=== PATIENT | female | born 1995 | race Caucasian/White ===

== ENCOUNTER 2018-01-13 09:08 | Outpatient (CLI) | payer MEDICAID ==
--- NOTE | 2018-01-13 12:56 | XRAY Report ---
TWO-VIEW LEFT SHOULDER: 01/13/2018 CLINICAL INDICATION: Pain. FINDINGS: Frontal and scapular Y views of the left shoulder demonstrate no evidence of fracture or dislocation. The joint spaces are preserved. No radiopaque foreign body is seen in the soft tissues. IMPRESSION: NORMAL LEFT SHOULDER. TD: 01/13/2018 12:55
== END 2018-01-13 09:09 | disposition home or self-care (01) ==
LOC: DI.S 09:08
PROVIDERS: ATTEND Nurse Practitioner Family
DX: M25.512 Pain in left shoulder (principal)

== ENCOUNTER 2018-04-06 12:28 | Outpatient (CLI) | payer MEDICAID ==
--- NOTE | 2018-04-06 15:38 | MRI Report ---
Procedure Date: 04/06/2018 Accession Number: [id number] / [id number] Procedure: MRI - Shoulder LT W/O CPT Code: FULL RESULT: EXAM: LEFT SHOULDER MRI WITHOUT CONTRAST EXAM DATE: 04/06/2018 01:28 PM. CLINICAL HISTORY: Pain in left shoulder, impingement syndrome. COMPARISON: None. TECHNIQUE: Multiplanar, multisequence T1-weighted and fluid-sensitive sequences of the shoulder without contrast. Other: None. FINDINGS: Acromioclavicular Region: The acromion is type II. The acromioclavicular joint is unremarkable. No subacromial/subdeltoid bursal fluid. Glenohumeral Region: No subluxation. No effusion or loose bodies. There is focal thinning of the hyaline cartilage in the posterior margin of the bony glenoid, with mild underlying bony edema. Hyaline cartilage in the remainder of the glenohumeral joint appears normal. Bone Marrow: No fracture, marrow edema or bone lesions. Labrum: The labrum appears unremarkable. Musculature/Rotator Cuff: The subscapularis, supraspinatus, infraspinatus, and teres minor tendons are intact. No edema or fatty atrophy. Biceps Tendon: The long head of the biceps tendon and biceps hector are intact. Other: The subcutaneous tissues are unremarkable. IMPRESSION: 1. Focal osteochondral injury of the posterior margin of the bony glenoid suggesting a prior posterior dislocation or subluxation. 2. The rotator cuff and acromioclavicular joint appear normal. [facility] MUSCULOSKELETAL RADIOLOGY SECTION
== END 2018-04-06 12:29 | disposition home or self-care (01) ==
LOC: DI 12:28
PROVIDERS: ATTEND Nurse Practitioner Family
DX: M25.512 Pain in left shoulder (principal); M75.42 Impingement syndrome of left shoulder

== ENCOUNTER 2018-06-28 09:10 | Outpatient (CLI) | payer MEDICAID ==
[2018-06-28] MEDS ORDERED: GADOPENTETATE DIMEGLUMINE 5 ML VIAL IVP ONE ×2 (09:20→10:04)
[2018-06-28] MEDS ORDERED: IOTHALAMATE MEGLUMINE 50 ML VIAL ONE (09:20)
[2018-06-28] MEDS ORDERED: BUFFERED LIDOCAINE 10 ML SYRINGE IU ONE (10:04)
[2018-06-28] MEDS ORDERED: IOTHALAMATE MEGLUMINE 50 ML VIAL IVP ONE (10:04)
--- NOTE | 2018-06-28 10:22 | XRAY Report ---
Reason: PAIN IN LEFT SHOULDER Procedure Date: 06/28/2018 Accession Number: [id number] / [id number] Procedure: FL - Arthrogram Needle Placement CPT Code: FULL RESULT: EXAM: FLUOROSCOPIC LEFT SHOULDER ARTHROGRAM EXAM DATE: 06/28/2018 10:03 AM. CLINICAL HISTORY: PAIN IN LEFT SHOULDER. COMPARISON: None. FINDINGS: The risks and benefits of the procedure were discussed with the patient, and she desired to proceed. A standard timeout was performed which identified the left shoulder as the correct joint as well as patient name and date of . The patient was prepped and draped in normal sterile fashion. 6 cc of 1% lidocaine were injected into the soft tissues for anesthesia. Using a 20-gauge needle the left shoulder joint was accessed under fluoroscopic guidance, and 12 cc of solution were injected into the joint. The solution contained 10 cc lidocaine 1%, 10 cc Conray, and a 0.1 cc Gadavist. There were no immediate complications. The patient was escorted to the MRI suite. IMPRESSION: Successful contrast injection of the left shoulder [facility]
--- NOTE | 2018-06-28 14:14 | MRI Report ---
Reason: PAIN IN LEFT SHOULDER Procedure Date: 06/28/2018 Accession Number: [id number] / [id number] Procedure: MRI - Arthrogram Shoulder LT CPT Code: FULL RESULT: EXAM: LEFT SHOULDER MRI ARTHROGRAM WITH CONTRAST EXAM DATE: 06/28/2018 10:06 AM. CLINICAL HISTORY: Pain in left shoulder. "Focal osteochondral injury of the posterior margin of the bony glenoid". Described on the MRI left shoulder without contrast 04/06/2018. COMPARISON: Arthrogram 06/28/2018 9:44 AM. Shoulder left without contrast 04/06/2018 12:59 PM. TECHNIQUE: Multiplanar, multisequence T1-weighted and fluid-sensitive sequences of the shoulder after an arthrographic injection of dilute gadolinium, dictated under a separate exam. Other: None. FINDINGS: Acromioclavicular Region: The acromion is type II. The acromioclavicular joint is unremarkable. The coracoacromial and coracoclavicular ligaments are intact. There is no contrast or fluid in the subacromial/subdeltoid bursa. Glenohumeral Region: No subluxation. No loose bodies. Probable focal chondromalacia mid posterior glenoid at the junction with the acetabular labrum on axial proton density fat saturation MRI sequence 04/06/2018. Corresponding mild concave defect on the axial fat saturation T1-weighted arthrogram sequence. The glenohumeral ligaments and joint capsule are unremarkable. Bone Marrow: No fracture, marrow edema or bone lesions. Labrum: Negative for complete contrast signal labrum tear. Biceps Tendon: The long head of the biceps tendon and biceps hector are intact. Musculature/Rotator Cuff: The subscapularis, supraspinatus, infraspinatus, and teres minor tendons are intact. No edema or fatty atrophy. Other: The subcutaneous tissues are unremarkable. IMPRESSION: 1. Negative for rotator cuff tear or internal derangement. 2. Negative for complete contrast signal labrum tear. 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 [facility] MUSCULOSKELETAL RADIOLOGY SECTION
== END 2018-06-28 09:11 | disposition home or self-care (01) ==
LOC: DI 09:10
PROVIDERS: ATTEND Orthopaedic Surgery
DX: M25.512 Pain in left shoulder (principal)
CPT/HCPCS: 23350; 73222; 77002; Q9961

== ENCOUNTER 2018-07-07 08:00 | Outpatient (CLI) | payer MEDICAID | END 2018-07-07 08:01 | disposition home or self-care (01) | LOC: LAB.R 08:00 | PROVIDERS: ATTEND Nurse Practitioner Family | DX: Z20.2 Contact with and (suspected) exposure to infections with a predominantly sexual mode of transmission (principal) | CPT/HCPCS: 87491; 87591 ==

== ENCOUNTER 2018-07-10 12:41 | Outpatient (CLI) | payer MEDICAID ==
[2018-07-11 10:37] LABS: HEPATITIS C ANTIBODY NON-REACTIVE (NON-REACTIVE)
[2018-07-11 13:56] LABS: HIV AG/AB 4TH GEN NON-REACTIVE (NON-REACTIVE)
[2018-07-12 11:21] LABS: HSV 1 IGG TYPE SPECIFIC AB <0.90 index; HSV 2 IGG TYPE SPECIFIC AB <0.90 index
== END 2018-07-10 12:42 | disposition home or self-care (01) ==
LOC: LAB.S 12:41
PROVIDERS: ATTEND Nurse Practitioner Family
DX: Z20.2 Contact with and (suspected) exposure to infections with a predominantly sexual mode of transmission (principal)
CPT/HCPCS: 36415; 81599; 86592; 86695; 86696; 86803; 87389

== ENCOUNTER 2020-06-30 12:20 | Outpatient (CLI) | payer BC ==
[2020-06-30 15:31] LABS: BASOPHILS % (AUTO) 0.4 %; EOSINOPHILS # (AUTO) 0.2 10^3/uL (0.0-0.7); EOSINOPHILS % (AUTO) 2.6 %; HGB - HEMOGLOBIN 13.5 g/dL (12.0-16.0); LYMPHOCYTES # (AUTO) 1.6 10^3/uL (1.5-3.5); LYMPHOCYTES % (AUTO) 23.3 %; MEAN CORPUSCULAR HEMOGLOBIN 30.7 pg (27.0-31.0); MEAN CORPUSCULAR HGB CONC 33.1 g/dL (32.0-36.0); MEAN CORPUSCULAR VOLUME 92.7 fL (81.0-99.0); MEAN PLATELET VOLUME 9.4 fL (7.9-10.8); MONOCYTES # (AUTO) 0.3 10^3/uL (0.0-1.0); MONOCYTES % (AUTO) 4.8 %; NEUTROPHILS # (AUTO) 4.7 10^3/uL (1.5-6.6); NEUTROPHILS % (AUTO) 68.5 %; PLT - PLATELET COUNT 273 10^3/uL (130-450); RED CELL DISTRIBUTION WIDTH 12.6 % (12.0-15.0); WHITE BLOOD COUNT 6.9 x10^3/uL (4.8-10.8)
[2020-06-30 15:47] LABS: ALBUMIN 4.6 g/dL (3.2-5.5); ALBUMIN/GLOBULIN RATIO 1.5 (1.0-2.2); BILIRUBIN,TOTAL 1.2 mg/dL (0.2-1.0); CALCIUM 9.6 mg/dL (8.5-10.3); CREATININE 0.7 mg/dL (0.4-1.0); TOTAL PROTEIN 7.6 g/dL (6.7-8.2)
[2020-07-01 13:41] LABS: HIV AG/AB 4TH GEN NON-REACTIVE (NON-REACTIVE)
== END 2020-06-30 12:21 | disposition home or self-care (01) ==
LOC: LAB.S 12:20
PROVIDERS: ATTEND Registered Nurse
DX: Z01.419 Encounter for gynecological examination (general) (routine) without abnormal findings (principal)
CPT/HCPCS: 36415; 80053; 84443; 85025; 87389

== ENCOUNTER 2020-09-15 08:00 | Outpatient (CLI) | payer BC ==
[2020-09-16 22:43] LABS: TRICHOMONAS VAGINALIS DNA NEGATIVE (NEGATIVE)
== END 2020-09-15 08:01 | disposition home or self-care (01) ==
LOC: LAB.R 08:00
PROVIDERS: ATTEND Obstetrics & Gynecology
DX: Z11.3 Encounter for screening for infections with a predominantly sexual mode of transmission (principal)
CPT/HCPCS: 87491; 87591; 87661